=== PATIENT | female | born 1970 | race Caucasian/White ===

== ENCOUNTER 2016-08-30 11:29 | Inpatient (IN) | payer BC ==
[~2016-08-30] VITALS: Ht 172.7 cm; Wt 95.3 kg
[2016-08-30 11:36] VITALS: BP 135/84
[2016-08-30 11:54] LABS: URINE BILIRUBIN NEGATIVE (Negative); URINE BLOOD NEGATIVE (Negative); URINE COLOR YELLOW; URINE GLUCOSE-RANDOM* NEGATIVE (Negative); URINE KETONES NEGATIVE (Negative); URINE NITRITE NEGATIVE (Negative); URINE PROTEIN (DIPSTICK) TRACE (Negative); URINE SPECIFIC GRAVITY >= 1.030 (1.003-1.035); URINE UROBILINOGEN 0.2 E.U./dl (0.2-1.0)
[2016-08-30] MEDS ORDERED: JANUVIA100 MG PO (11:54)
[2016-08-30] MEDS ORDERED: LISINOPRIL20 MG PO (11:54)
[2016-08-30] MEDS ORDERED: XANAX 0.5 MG0.5 MG PO (11:54)
[2016-08-30] MEDS ORDERED: CELEXA20 MG PO (11:55)
[2016-08-30] MEDS ORDERED: METFORMIN HCL500 MG PO (11:55)
[2016-08-30] MEDS ORDERED: LEVOTHYROXINE 0.1 MG PO (11:55)
[2016-08-30 11:56] LABS: BASOPHILS 0.3 % (0.0-2.0); EOSINOPHILS 0.2 % (0.0-3.0); HEMATOCRIT 38.7 % (37.0-47.0); HEMOGLOBIN 12.8 gm/dL (12.0-15.0); LYMPHOCYTES 12.9 % (24.0-44.0); MANUAL DIFF NO; MCH 25.4 pg (26.0-34.0); MCV 76.9 fL (80.0-100.0); MONOCYTES 9.4 % (1.0-8.0); PLATELET COUNT 271 thou/uL (150-400); POLYS 77.2 % (36.0-66.0); RBC 5.03 mil/uL (4.20-5.00); RDW 14.6 % (10.5-14.5); WBC 14.2 thou/uL (4.0-11.0)
[2016-08-30] MEDS ORDERED: OMEPRAZOLE 20 M20 M1 PO (11:56)
[2016-08-30] MEDS ORDERED: NORVASC5 MG PO (11:56)
[2016-08-30 12:05] LABS: CALCIUM 9.4 mg/dL (8.5-10.1); CREATININE 0.7 mg/dL (0.6-1.3); POTASSIUM 4.1 mmol/L (3.5-5.1)
[2016-08-30 12:11] LABS: DIRECT BILIRUBIN 0.2 mg/dL (<0.1-0.3); TOTAL BILIRUBIN 1.7 mg/dL (<0.1-1.0); TOTAL PROTEIN 8.6 g/dL (6.4-8.2)
[2016-08-30 14:13] VITALS: BP 116/71
[2016-08-30 14:38] VITALS: BP 108/62
[2016-08-30 18:30] VITALS: BP 148/67
[2016-08-30 19:53] VITALS: BP 125/71
[2016-08-31 00:10] VITALS: BP 115/61
[2016-08-31 06:06] LABS: ABSOLUTE NEUTROPHILS 4.2 thou/uL (1.4-8.2); BASOPHILS 0.1 % (0.0-2.0); EOSINOPHILS 0.6 % (0.0-3.0); HEMATOCRIT 34.5 % (37.0-47.0); HEMOGLOBIN 11.4 gm/dL (12.0-15.0); LYMPHOCYTES 16.3 % (24.0-44.0); MCH 25.5 pg (26.0-34.0); MCV 77.2 fL (80.0-100.0); MONOCYTES 11.4 % (1.0-8.0); PLATELET COUNT 198 thou/uL (150-400); POLYS 71.6 % (36.0-66.0); RBC 4.47 mil/uL (4.20-5.00); RDW 14.6 % (10.5-14.5); WBC 5.9 thou/uL (4.0-11.0)
[2016-08-31 06:20] LABS: URINE BILIRUBIN NEGATIVE (Negative); URINE BLOOD NEGATIVE (Negative); URINE COLOR YELLOW; URINE GLUCOSE-RANDOM* NEGATIVE (Negative); URINE KETONES NEGATIVE (Negative); URINE LEUKOCYTES-REFLEX NEGATIVE (Negative); URINE PROTEIN (DIPSTICK) NEGATIVE (Negative)
[2016-08-31 06:27] LABS: MANUAL DIFF NO
[2016-08-31 06:31] LABS: ALBUMIN 3.3 g/dL (3.4-5.0); CALCIUM 8.7 mg/dL (8.5-10.1); CREATININE 0.6 mg/dL (0.6-1.3); MAGNESIUM 1.8 mg/dL (1.8-2.4); POTASSIUM 3.5 mmol/L (3.5-5.1); TOTAL BILIRUBIN 1.8 mg/dL (<0.1-1.0); TOTAL PROTEIN 7.4 g/dL (6.4-8.2)
[2016-08-31 08:00] VITALS: BP 115/75
[2016-08-31 10:11] LABS: % SATURATION 18 % (15-55); IRON 61 ug/dL (27-159); TIBC 345 ug/dL (250-450); UIBC 284 ug/dL (131-425)
[2016-08-31 15:17] VITALS: BP 113/68
[2016-08-31 20:00] VITALS: BP 124/76
[2016-09-01 04:20] VITALS: BP 125/66
[2016-09-01 06:27] LABS: BASOPHILS 0.3 % (0.0-2.0); EOSINOPHILS 1.5 % (0.0-3.0); HEMATOCRIT 34.5 % (37.0-47.0); HEMOGLOBIN 11.4 gm/dL (12.0-15.0); LYMPHOCYTES 16.1 % (24.0-44.0); MCH 25.6 pg (26.0-34.0); MCV 77.6 fL (80.0-100.0); MONOCYTES 10.5 % (1.0-8.0); PLATELET COUNT 200 thou/uL (150-400); POLYS 71.6 % (36.0-66.0); RBC 4.44 mil/uL (4.20-5.00); RDW 14.5 % (10.5-14.5); WBC 4.2 thou/uL (4.0-11.0)
[2016-09-01 06:36] LABS: MANUAL DIFF NO
[2016-09-01 06:39] LABS: INR 1.1
[2016-09-01 08:06] LABS: CALCIUM 8.7 mg/dL (8.5-10.1); CREATININE 0.6 mg/dL (0.6-1.3); POTASSIUM 4.1 mmol/L (3.5-5.1)
[2016-09-01 14:09] LABS: IgG 905 mg/dL (700-1600)
[2016-09-01 16:44] VITALS: BP 116/66
[2016-09-01 20:48] VITALS: BP 126/69
[2016-09-02 04:15] VITALS: BP 117/68
[2016-09-02 04:56] LABS: HEMATOCRIT 36.7 % (37.0-47.0); HEMOGLOBIN 11.5 gm/dL (12.0-15.0); MCH 24.9 pg (26.0-34.0); MCHC 31.5 % (28.0-37.0); MCV 79.2 fL (80.0-100.0); RBC 4.63 mil/uL (4.20-5.00); RDW 14.6 % (10.5-14.5); WBC 4.1 thou/uL (4.0-11.0)
[2016-09-02 05:21] LABS: ALBUMIN 3.3 g/dL (3.4-5.0); CALCIUM 8.9 mg/dL (8.5-10.1); CREATININE 0.6 mg/dL (0.6-1.3); DIRECT BILIRUBIN 0.2 mg/dL (<0.1-0.3); POTASSIUM 4.1 mmol/L (3.5-5.1); TOTAL BILIRUBIN 0.5 mg/dL (<0.1-1.0)
[2016-09-02 06:07] LABS: HEPATITIS C VIRUS AB <0.1 (0.0-0.9)
[2016-09-02 07:41] VITALS: BP 123/83
[2016-09-02 15:55] VITALS: BP 101/61
[2016-09-02 20:08] VITALS: BP 116/74
[2016-09-03 03:30] VITALS: BP 104/53
[2016-09-03 08:00] VITALS: BP 109/73
[2016-09-03] MEDS ORDERED: FLAGYL500 MG PO (09:37)
[2016-09-03] MEDS ORDERED: CIPRO500 MG PO (09:37)
[2016-09-03 14:31] VITALS: BP 109/73
[2016-09-03 16:08] LABS: CERULOPLASMIN 28.1 mg/dL (19.0-39.0)
[2016-09-04 14:12] LABS: MITOCHONDRIAL ANTIBODY 3.2 Units (0.0-20.0)
== END 2016-09-03 15:45 | disposition home or self-care (01) | DRG 392 ==
LOC: ER 11:29 → EROBS 13:48 → 4N 13:48 → EROBS 14:13 → 4N 14:37
PROVIDERS: Emergency Medicine; Family Medicine; Internal Medicine Gastroenterology; Nurse Practitioner; Nurse Practitioner Adult Health
DX: K57.32 Diverticulitis of large intestine without perforation or abscess without bleeding (principal); E87.1 Hypo-osmolality and hyponatremia; E11.65 Type 2 diabetes mellitus with hyperglycemia; I10 Essential (primary) hypertension; D72.829 Elevated white blood cell count, unspecified; D64.9 Anemia, unspecified; K21.9 Gastro-esophageal reflux disease without esophagitis; K52.9 Noninfective gastroenteritis and colitis, unspecified; G47.30 Sleep apnea, unspecified; E03.9 Hypothyroidism, unspecified; Z79.4 Long term (current) use of insulin
CPT/HCPCS: 10091